=== PATIENT | female | born 1975 | race Caucasian/White ===

== ENCOUNTER 2020-12-08 09:06 | Emergency (ER) | payer OTHER ==
[~2020-12-08] VITALS: Ht 162.6 cm; Wt 59.0 kg
[2020-12-08 09:17] VITALS: Ht 162.6 cm; Wt 59.0 kg
[2020-12-08 11:42] VITALS: BP 141/87
== END 2020-12-08 11:42 | disposition home or self-care (01) ==
LOC: ED 09:06
DX: H60.502 Unspecified acute noninfective otitis externa, left ear (principal); F15.10 Other stimulant abuse, uncomplicated